=== PATIENT | female | born 1965 | race Caucasian/White ===

== ENCOUNTER 2025-04-07 21:51 | Emergency (ER) | payer OTHER ==
[~2025-04-07] VITALS: Ht 160 cm; Wt 102.1 kg
[~2025-04-07 21:51] MED LIST: OMEPRAZOLE10 MG
[2025-04-07] MEDS ORDERED: GLIMEPIRIDE1 M1 PO (22:24)
[2025-04-07] MEDS ORDERED: ATORVASTATIN CA10 MG PO (22:24)
[2025-04-07] MEDS ORDERED: ARBLI10 MG/1 ML PO (22:24)
[2025-04-08] MEDS ORDERED: DEXAMETHASONE SODIUM PHOSPHATE 4 MG/ML VIAL IM STA (03:05)
[2025-04-08] MEDS ORDERED: DIPHENHYDRAMINE HCL 50 MG/ML VIAL 1ML IM STA (03:05)
[2025-04-08] MEDS ORDERED: DIPHENHYDRAMINE HCL 50 MG/ML VIAL 1ML ONE (03:11)
[2025-04-08] MEDS ORDERED: DEXAMETHASONE SODIUM PHOSPHATE 4 MG/ML VIAL ONE (03:11)
[2025-04-08 03:36] LABS: BASO % 0.5 % (0.1-1.2); EOS # 0.27 (0.04-0.54); EOS % 4.2 % (0.7-7.0); LYMPH # 1.21 (1.18-3.74); LYMPH % 18.9 % (19.3-53.1); MEAN PLATELET VOLUME 9.60 fl (9.4-12.4); MONO # 0.33 (0.24-0.82); MONO % 5.1 % (4.7-12.5); NEUT # 4.56 (1.56-6.13); NEUT % 71.1 % (34.0-71.1); RED CELL DISTRIBUTION WIDTH 12.1 % (11.6-14.4)
[2025-04-08 03:57] LABS: BUN CREA RATIO 35.0 (7.0-25.0); CREATININE SERUM 0.46 mg/dL (0.55-1.02); GFR 139.52; GLUCOSE FASTING 139.0 mg/dL (65-100); OSMOLALITY SERUM 287.0 MOSM/KG (275-295)
[2025-04-08 04:07] LABS: EOSINOPHIL MAN 2.0 %; LYMPHOCYTE MAN 14.0 %; MONOCYTE MAN 6.0 %; NEUTROPHILS MAN 71.0 %
[2025-04-08 05:31] LABS: URINE APPEARANCE Clear; URINE BILIRRUBIN Negative (NEGATIVE); URINE BLOOD Negative; URINE COLOR Yellow; URINE KETONE Negative (NEGATIVE); URINE LEUKOCYTE Small; URINE NITRATE Negative; URINE PROTEIN Negative (NEGATIVE); URINE UROBILINOGEN 0.2 E.U./dl
[2025-04-08 05:34] LABS: URINE BACTERIA 1330.7 uL (0.0-1933); URINE EPITHELIAL CELLS 47.5 uL (0.0-38.8); URINE RBC 8.3 uL (0.0-20.8); URINE WBC 194.1 uL (0.0-23.2)
[2025-04-08 05:49] LABS: URINE CAST 0.29 uL (0.0-1.40); URINE EPITHELIAL CELLS 0-4 /HPF; URINE GLUCOSE >=1000 MG/DL (NEGATIVE)
== END 2025-04-08 06:32 | disposition home or self-care (01) ==
LOC: ER 21:51
PROVIDERS: General Practice
DX: R10.84 Generalized abdominal pain (principal); Z88.2 Allergy status to sulfonamides